=== PATIENT | male | born 1970 | race Native Hawaiian/Other Pacific Islander ===

== ENCOUNTER 2017-10-14 06:37 | Emergency (ER) | payer MEDICAID ==
[2017-10-14 06:49] VITALS: RESP 18; O2SAT 98
[2017-10-14] MEDS ORDERED: Naproxen 550 mg Tab PO STA (07:36)
[2017-10-14] MEDS ORDERED: Dexamethasone 4 mg/1 ml IM STA (07:36)
[2017-10-14] MEDS ORDERED: Dexamethasone 4 mg/1 ml ONE (07:50)
[2017-10-14] MEDS ORDERED: Naproxen 550 mg Tab PO ONE (07:50)
--- NOTE | 2017-10-14 07:58 | C.PDOC ---
History Of Present Illness 47-year-old male, presents to the emergency department with complaints of right sided lower back pain that started 9 weeks ago after lifting a heavy bag. Patient has been taking Flexeril, Meloxicam, Motrin and Tramadol with transient relief. Pain is intermittent, worse with certain movements. He had X-Rays, hip XR shows arthritis and back XR shows spasm . Pt is requesting IM medication because pain persists. Denies numbness/weakness, vascular deficits, bladder/ bowel incontinence, fevers, chills, nausea/vomiting, dizziness, headache or any other associated symptoms. No leg swelling. No testicular pain. Time Seen by Provider: 10/14/17 07:27 Chief Complaint (Nursing): Back Pain History Per: Patient History/Exam Limitations: no limitations Onset/Duration Of Symptoms: Intermittent Episodes Associated Symptoms: denies: Incontinence, New Weakness, New Numbness Past Medical History Reviewed: Historical Data, Nursing Documentation, Vital Signs Vital Signs: Last Vital Signs Temp 98 F 10/14/17 09:26 Pulse 78 10/14/17 09:26 Resp 18 10/14/17 09:26 BP 126/69 10/14/17 09:26 Pulse Ox 98 10/14/17 09:26 Family History: States: No Known Family Hx - Social History Hx Alcohol Use: No Hx Substance Use: No - Immunization History Hx Tetanus Toxoid Vaccination: No Hx Influenza Vaccination: No Hx Pneumococcal Vaccination: No Review Of Systems Except As Marked, All Systems Reviewed And Found Negative. Constitutional: Negative for: Fever, Chills Gastrointestinal: Negative for: Nausea, Vomiting Genitourinary: Negative for: Incontinence Musculoskeletal: Positive for: Back Pain Neurological: Negative for: Weakness, Numbness Physical Exam - Physical Exam Appears: Well, Non-toxic, No Acute Distress Skin: Warm, Dry, No Rash Head: Atraumatic, Normacephalic Eye(s): bilateral: Normal Inspection, EOMI Nose: Normal Oral Mucosa: Moist Neck: Normal ROM, Supple Chest: Symmetrical Cardiovascular: Rhythm Regular Respiratory: Normal Breath Sounds, No Decreased Breath Sounds, No Accessory Muscle Use Gastrointestinal/Abdominal: Soft, No Tenderness Back: Paraspinal Tenderness (R-lower lumbar and R buttock.) Extremity: Normal ROM, No Deformity, No Swelling Neurological/Psych: Oriented x3, Normal Speech, Normal Motor, Normal Sensation, Other (no focal deficits) ED Course And Treatment O2 Sat by Pulse Oximetry: 98 (RA) Pulse Ox Interpretation: Normal Progress Note: CT Abd/Pel ordered and reviewed. Pt treated with PO Naproxen and IM Decadron. On reassessment, patient is resting comfortably, with improvement of back pain. Patient remains afebrile, with no bony tenderness, extremity numbness or weakness, or abdominal pain. Patient is ambulatory in the emergency department with no signs of discomfort. Patient was advised to follow up with physician/clinic in 1-2 days. Case discussed with Dr Ty, agreed upon plan and discharge. Disposition - Disposition Referrals: Joel Ty MD [Primary Care Provider] - Disposition: HOME/ ROUTINE Disposition Time: 09:12 Condition: STABLE Additional Instructions: Follow up with your PMD in 1-2 days. Return to ER if symptoms persist or worsen. Prescriptions: Lidocaine 5% [Lidoderm] 1 patch TOP DAILY PRN #5 patch PRN Reason: Pain, Moderate (4-7) Instructions: Low Back Pain (DC) Forms: [employer] (Chinese) - Clinical Impression Clinical Impression: Sciatica, Low back pain - Scribe Statement The provider has reviewed the documentation as recorded by the Scribe (Lyle Umaña) All medical record entries made by the Scribe were at my direction and personally dictated by me. I have reviewed the chart and agree that the record accurately reflects my personal performance of the history, physical exam, medical decision making, and the department course for this patient. I have also personally directed, reviewed, and agree with the discharge instructions and disposition.
[2017-10-14 08:56] LABS: URINE BILIRUBIN NEGATIVE (NEGATIVE); URINE BLOOD NEGATIVE (NEGATIVE); URINE CLARITY Clear (Clear); URINE COLOR Yellow (YELLOW); URINE GLUCOSE (UA) NORMAL (Normal); URINE LEUKOCYTE ESTERASE NEG Leu/uL (Negative); URINE PROTEIN NEGATIVE (NEGATIVE); URINE UROBILINOGEN NORMAL mg/dL (0.2-1.0)
--- NOTE | 2017-10-14 09:03 | CT ---
PROCEDURE: CT Abdomen and Pelvis without intravenous contrast HISTORY: right sided pain COMPARISON: None. TECHNIQUE: Without contrast.. Contrast Dose: 0 Radiation dose: Total exam DLP = 458.90 mGy-cm. This CT exam was performed using one or more of the following dose reduction techniques: Automated exposure control, adjustment of the mA and/or kV according to patient size, and/or use of iterative reconstruction technique. FINDINGS: LOWER THORAX: Unremarkable. LIVER: Unremarkable. No gross lesion or ductal dilatation. GALLBLADDER AND BILE DUCTS: Unremarkable. PANCREAS: Unremarkable. No gross lesion or ductal dilatation. SPLEEN: Unremarkable. ADRENALS: Unremarkable. No mass. KIDNEYS AND URETERS: Unremarkable. No hydronephrosis. No solid mass. VASCULATURE: Unremarkable. No aortic aneurysm. BOWEL: Unremarkable. No obstruction. No gross mural thickening. APPENDIX: Unremarkable. Normal appendix. PERITONEUM: Unremarkable. No free fluid. No free air. LYMPH NODES: Unremarkable. No enlarged lymph nodes. BLADDER: Unremarkable. REPRODUCTIVE: Normal prostate BONES: No acute fracture. OTHER FINDINGS: None. IMPRESSION: Unremarkable non contrast enhanced CT of the abdomen and pelvis.
[2017-10-14 09:27] VITALS: BP 126/69; PULSE 78; TEMP 98
== END 2017-10-14 09:30 | disposition home or self-care (01) ==
LOC: C.ER 06:37 → SUPCPDRO 06:37 → C.ER 09:30
DX: M54.40 Lumbago with sciatica, unspecified side (principal)
CPT/HCPCS: 74176; 81001; 96372; 99285; J1100